=== PATIENT | female | born 1955 | race Caucasian/White ===

== ENCOUNTER 2017-01-12 11:34 | Outpatient (CLI) | payer OTHER ==
--- NOTE | 2017-01-12 12:55 | XRAY Report ---
TWO-VIEW LEFT CALCANEUS: 01/12/2017 CLINICAL INDICATION: Pain. FINDINGS: Frontal and lateral views of the left calcaneus demonstrate no evidence of fracture. The joint spaces are preserved. No radiopaque foreign body is seen in the soft tissues. IMPRESSION: NORMAL CALCANEUS. JOB #: [id number] EXT JOB #:[id number]
== END 2017-01-12 11:35 | disposition home or self-care (01) ==
LOC: DI 11:34
PROVIDERS: ATTEND Podiatrist
DX: M79.672 Pain in left foot (principal)

== ENCOUNTER 2019-05-09 09:55 | Outpatient (CLI) | payer OTHER ==
--- NOTE | 2019-05-10 09:41 | Mammography Report ---
Reason: ROUTINE MAMMO Procedure Date: 05/09/2019 Accession Number: [id number] / [id number] Procedure: [facility] - Screening Mammo w/Abiodun CPT Code: FULL RESULT: EXAM: Screening Mammo w/Abiodun DATE: 05/09/2019 10:26 AM CLINICAL HISTORY: Screening encounter. History of nulliparity. TECHNIQUE: (B) - Bilateral CC, laterally exaggerated CC, MLO views were obtained. COMPARISON: 08/14/2016 through 07/27/2011. PARENCHYMAL PATTERN: (D) - The breast(s) demonstrate(s) heterogeneously dense fibroglandular parenchyma. FINDINGS: There are no suspicious masses, calcifications, or areas of distortion. IMPRESSION: Negative examination. BI-RADS category 1. RECOMMENDATION: (ANNUAL) - Recommend routine annual screening mammography. BI-RADS CATEGORY: (1) - Negative. STANDARD QUALIFYING STATEMENTS: 1. This examination was not reviewed with the aid of Computer-Aided Detection (CAD). 2. A negative or benign imaging report should not preclude biopsy if clinically suspicious findings are present. 3. Dense breasts may obscure an underlying neoplasm. 4. This examination was reviewed with the aid of 3D breast imaging (tomosynthesis).
== END 2019-05-09 09:56 | disposition home or self-care (01) ==
LOC: DI 09:55
DX: Z12.31 Encounter for screening mammogram for malignant neoplasm of breast (principal)
CPT/HCPCS: 77063; 77067

== ENCOUNTER 2022-07-07 14:08 | Outpatient (CLI) | payer MEDICARE ==
--- NOTE | 2022-07-07 16:33 | XRAY Report ---
PROCEDURE: Hip w/Pelvis 2-3V RT INDICATIONS: RIGHT HIP PAIN TECHNIQUE: AP pelvis with lateral view of the right hip. COMPARISON: None. FINDINGS: Bones: No acute fractures or dislocations. Pelvic ring appears intact. Sclerotic lesion with chondr oid matrix in the intratrochanteric region of the right proximal femur is most likely a benign enchon droma. Mild joint space narrowing at the superior aspect of this bilaterally with marginal osteophyte formation. Mild degenerative changes are seen in the included lumbar spine. Soft tissues: The visualized bowel gas pattern is normal. No suspicious soft tissue calcifications. IMPRESSION: 1.Mild bilateral hip osteoarthrosis. 2.Degenerative changes are partially imaged in the lumbar spine. 3.Sclerotic lesion in the right proximal femur is most likely a benign enchondroma. Reviewed by: Frank Ulrich MD on 07/07/2022 4:31 PM PST Approved by: Frank Ulrich MD on 07/07/2022 4:31 PM PST Station ID: [id number]
--- NOTE | 2022-07-07 17:12 | DEXA Report ---
PROCEDURE: Dexa Spine and/or Hip INDICATIONS: OSTEOPENIA, RIGHT HIP PAIN TECHNIQUE: Dual energy x-ray absorptiometry (DXA) was performed on a [employer]. Regions measur ed are the AP Spine, femoral neck, and if needed forearm. COMPARISON: None. FINDINGS: Lumbar Spine: Bone Mineral Density 0.924 g/cm/cm,T score -2.1, osteoporosis Left total Hip: Bone Mineral Density 0.718 g/cm/cm,T score -2.3, osteoporosis Left Femoral Neck: Bone Mineral Density 0.706 g/cm/cm, T score -2.4, osteoporosis (T score greater or equal to -1.0: NORMAL) (T score from -1.1 to -2.4: OSTEOPENIA) (T score less than or equal to -2.5 to: OSTEOPOROSIS) Impression: 1. Osteoporosis. 2. Bone density decreased 10.1% compared to 09/22/2013. Patients with diagnosis of osteoporosis or osteopenia should have regular bone mineral density assess ment. For those eligible for Medicare, routine testing is allowed once every 2 years. Testing frequ ency can be increased for patients who have rapidly progressing disease or for those who are receivin g medical therapy to restore bone mass. Reviewed by: Bruno Nelson on 07/07/2022 5:11 PM PST Approved by: Bruno Nelson on 07/07/2022 5:11 PM PST Station ID: [id number]
== END 2022-07-07 14:09 | disposition home or self-care (01) ==
LOC: DI 14:08
PROVIDERS: ATTEND Nurse Practitioner Family
DX: M16.0 Bilateral primary osteoarthritis of hip (principal); M47.816 Spondylosis without myelopathy or radiculopathy, lumbar region; R93.6 Abnormal findings on diagnostic imaging of limbs; M85.89 Other specified disorders of bone density and structure, multiple sites

== ENCOUNTER 2022-07-07 14:14 | Outpatient (CLI) | payer MEDICARE ==
--- NOTE | 2022-07-08 10:06 | Mammography Report ---
BILATERAL DIGITAL SCREENING MAMMOGRAM 3D/2D: 07/07/2022 CLINICAL: Routine screening. Comparison is made to exams dated: 05/09/2019 mammogram, 08/14/2016 mammogram - [facility], and 07/27/2011 mammogram - [facility]. Both breasts are heterogeneously dense, which may obscure small masses (category c / 51-75% glandular tissue). No significant masses, calcifications, or other findings are seen in either breast. There has been no significant interval change. IMPRESSION: NEGATIVE There is no mammographic evidence of malignancy. A 1 year screening mammogram is recommended. Based on the Tyrer Cuzick model (a risk assessment model) the patients lifetime risk is 14.2% and he r 10 year risk is 7.0%. According to the ACR, ACS, and NCCN guidelines, an annual breast MRI exam milagro ng with mammogram is recommended if the patients lifetime risk is 20% or greater. This exam was interpreted at Station ID: [id number]. NOTE: For mammograms, a report in lay terms will be sent to the patient. Approximately 15% of breast malignancies will not be visualized mammographically. In the management of a palpable breast mass, a negative mammogram must not discourage biopsy of a clinically suspicious lesion. Electronically Signed By: Buster avery/ash:07/07/2022 17:55:13 ACR BI-RADS Category 1: Negative 3341F PARENCHYMAL PATTERN: (D) - The breast(s) demonstrate(s) heterogeneously dense fibroglandular uziel woo. BI-RADS CATEGORY: (1) - 1 RECOMMENDATION: (ANNUAL) - Recommend routine annual screening mammography. [id number] 1 year screening LATERALITY: (B)
== END 2022-07-07 14:15 | disposition home or self-care (01) ==
LOC: DI 14:14
PROVIDERS: ATTEND Nurse Practitioner Family
DX: Z12.31 Encounter for screening mammogram for malignant neoplasm of breast (principal)

== ENCOUNTER 2022-07-15 12:50 | Outpatient (CLI) | payer MEDICARE ==
--- NOTE | 2022-07-15 15:04 | XRAY Report ---
PROCEDURE: Wrist 3 View LT INDICATIONS: PAIN OF LEFT WRIST TECHNIQUE: 3 views of the wrist were acquired. COMPARISON: None FINDINGS: Bones: No fractures or dislocations. No suspicious bony lesions. Soft tissues: No suspicious soft tissue calcifications. IMPRESSION: Side plate and screw fixation of the distal radius. No acute abnormality. Reviewed by: Bruno Nelson on 07/15/2022 3:03 PM [facility] Approved by: Bruno Nelson on 07/15/2022 3:03 PM [facility] Station ID: [id number]
== END 2022-07-15 12:51 | disposition home or self-care (01) ==
LOC: DI.S 12:50
PROVIDERS: ATTEND Nurse Practitioner Family
DX: M25.532 Pain in left wrist (principal)